=== PATIENT | female | born 1945 | race Caucasian/White ===

== ENCOUNTER → 2017-11-17 | Outpatient (CLI) | payer MEDICARE, OTHER ==
--- NOTE | 2017-11-17 12:02 | KCIC ---
MRI Lumbar Spine without contrast History: Left hip pain for years getting worse Technique: Multiplanar, multi sequential noncontrast MR imaging was performed of the lumbar spine. Contrast: None Comparison: None Findings: Most inferior fully formed intervertebral disc space is considered L5-S1 for this report. Lumbar vertebral body stature is maintained. There is grade 1 anterior spondylolisthesis L3-4, L4-5, L5-S1. There is hemangioma of the L1 vertebral body. Conus terminates at L1. There is [id number] degenerative disc disease at L3-4 with associated degenerative endplate change and endplate edema. There is also mild to moderate degenerative disc disease L4-5 and to lesser degree at L5-S1, minimally L2-3, mild disc desiccation T12-L1 and L1-L2. There is mild lumbar levoscoliosis. L1-L2: Spinal canal is adequate. Facet degenerative change and buckling of the ligamentum flavum contributes to mild posterior narrowing of the right neural foramen more superiorly, left neural foramen adequate. L2-L3: There is mild facet degenerative change greater on the right. There is negligible bulge. There is moderate narrowing of the right neural foramen from posteriorly, left neural foramen overall adequate. Spinal canal is adequate. L3-L4: There is moderate to severe facet degenerative change greater on the right, also buckling of the ligamentum flavum. There is also prominence of posterior epidural fat. There is partial uncovering of the posterior aspect of the disc due to spondylolisthesis. Combination of findings results in fairly severe spinal stenosis, some preserved subarachnoid space, posterior attenuation of the thecal sac more centrally by epidural lipomatosis. There is mild left and moderate to severe right neural foramina compromise. L4-L5: There is severe right and moderate left facet degenerative change. There is mild buckling of the ligamentum flavum. There is partial uncovering of the posterior aspect of the disc due to spondylolisthesis. Spinal canal is adequate. There is mild to moderate narrowing of the left neural foramen, right neural foramen not significantly narrowed. L5-S1: There is mild partial uncovering of the posterior aspect of the disc due to spondylolisthesis. Neural foramina and spinal canal are adequate. Impression: 1. There is fairly severe spinal stenosis L3-4, limited preserved subarachnoid space. There is attenuation of the thecal sac from posteriorly more centrally by epidural lipomatosis. 2. There is mild grade 1 anterior spondylolisthesis L3-4, L4-5, and L5-S1. There is multilevel facet degenerative change. 3. There is degenerative disc disease greatest at L3-4 and to lesser degree at other levels, L3-4 endplate edema likely reactive/degenerative in etiology. 4. There is neural foramina compromise as stated greatest on the right at L3-4, to lesser degree on the right L2-3 and on the left at L4-5. Electronically signed by: Jg Choi MD (11/17/2017 11:58 AM) [id number]
--- NOTE | 2017-11-17 13:27 | KCIC ---
EXAM: MRI Left HIP DATE: 11/17/2017 11:00 AM CLINICAL INDICATION: Multiplanar, multisequence MR imaging of the left hip was performed without IV contrast. COMPARISON: None. TECHNIQUE: Multiplanar, multisequence MR imaging of the left hip was performed without IV contrast. FINDINGS: No significant left hip joint effusion. There is trochanteric bursal distention with moderate edema overlying the trochanteric bursa, likely trochanteric bursitis. In general, the left hip joint cartilage is grossly preserved. On this limited evaluation of the labrum, no discrete tear is identified. No evidence of femoral head osteonecrosis or fracture. There is moderate increased signal and thickening of the attachment of the gluteus minimus and medius, likely moderate tendinosis. Tendinous attachment of the hamstrings, iliopsoas and rectus femoris are intact. Melonie-articular soft tissues: Negative periarticular mass lesion or focal muscular atrophy. Limited survey of the visceral contents of the pelvis within normal limits. IMPRESSION: 1. Trochanteric bursal distention and edema is consistent with trochanteric bursitis. 2. Moderate tendinosis of the gluteus medius and minimus tendons at the insertion. Electronically signed by: Clarke Alejandro MD (11/17/2017 1:23 PM) [id number]
== END | disposition home or self-care (01) ==
LOC: KCIC MRI 10:33
PROVIDERS: ATTEND Family Medicine
DX: M51.36 Other intervertebral disc degeneration, lumbar region (principal); M43.16 Spondylolisthesis, lumbar region; M43.17 Spondylolisthesis, lumbosacral region; M48.061 Spinal stenosis, lumbar region without neurogenic claudication; D18.09 Hemangioma of other sites; R60.0 Localized edema
CPT/HCPCS: 72148; 73721